=== PATIENT | male | born 1955 | race Caucasian/White ===

== ENCOUNTER 2018-09-07 09:21 | Day surgery (SDC) | payer OTHER ==
[2018-09-07] VITALS (29 sets, daily range): BP systolic 115–160; BP diastolic 75–105
[~2018-09-07] VITALS: Ht 190.5 cm; Wt 112.4 kg
[2018-09-07] MEDS ORDERED: HYDR-4353 PO (09:48)
[2018-09-07] MEDS ORDERED: CARSR60C PO (09:48)
[2018-09-07] MEDS ORDERED: UBID200C18 PO (09:48)
[2018-09-07] MEDS ORDERED: ATOR80TA PO (09:48)
[2018-09-07] MEDS ORDERED: ALBU0.63 NEB (09:48)
[2018-09-07] MEDS ORDERED: RIVA20TA PO (09:48)
[2018-09-07] MEDS ORDERED: OMEP20TA23 PO (09:48)
[2018-09-07] MEDS ORDERED: CLOP75TA15 PO (09:48)
[2018-09-07] MEDS ORDERED: PRED10TA23 PO (09:48)
[2018-09-07] MEDS ORDERED: normal saline 1000ml 1,000 ML IV SCH (09:55)
[2018-09-07] MEDS ORDERED: fentaNYL/PF 50MCG/1 ML 2ML syringe IV ONE (09:55)
[2018-09-07] MEDS ORDERED: MIDAZolam 5mg/ml 2ml vial IV ONE (09:55)
[2018-09-07 10:30] LABS: BASOPHILS % (AUTO) 0.3 % (0-1); EOSINOPHILS # (AUTO) 0.1 X10'3 (0-0.9); HEMATOCRIT 43.8 % (42.0-52.0); HEMOGLOBIN 14.2 g/dl (14.0-17.9); LYMPHOCYTES # (AUTO) 2.3 X10'3 (1.1-4.8); LYMPHOCYTES % (AUTO) 20.1 % (21-51); MEAN CORPUSCULAR HEMOGLOBIN 32.3 PG (27.0-31.0); MEAN CORPUSCULAR HGB CONC 32.5 % (33.0-36.5); MEAN CORPUSCULAR VOLUME 99.3 FL (78-98); MEAN PLATELET VOLUME 7.1 FL (7.4-10.4); MONOCYTES # (AUTO) 0.8 X10'3 (0-0.9); MONOCYTES % (AUTO) 7.4 % (2-12); NEUTROPHILS # (AUTO) 8.1 X10'3 (1.8-7.7); NEUTROPHILS % (AUTO) 71.2 % (42-75); PLATELET COUNT 182 X10'3 (140-440); RED BLOOD COUNT 4.41 X10'6 (4.70-6.10); RED CELL DISTRIBUTION WIDTH 14.9 % (11.5-14.5); WHITE BLOOD COUNT 11.4 X10'3 (4.5-11.0)
[2018-09-07 10:34] LABS: ALBUMIN 2.8 G/DL (3.4-5.0); ANION GAP 6 (8-16); BLOOD UREA NITROGEN 16 MG/DL (7-18); CALCIUM 8.2 MG/DL (8.5-10.1); CHLORIDE 105 MMOL/L (99-107); CREATININE 0.94 MG/DL (0.60-1.10); GLUCOSE 86 MG/DL (70-104); MAGNESIUM 1.9 MG/DL (1.5-2.4); POTASSIUM 3.1 MMOL/L (3.5-5.1); SODIUM 144 MMOL/L (135-145); TOTAL CARBON DIOXIDE 33.3 MMOL/L (24-32); eGFR 81 ML/MIN
[2018-09-07 10:39] LABS: INR 1.1 INR; PROTHROMBIN TIME 11.3 SECONDS (9.0-12.0)
[2018-09-07] MEDS ORDERED: amiodarone 150mg/dext, iso-os 100 ML IV ONE ×2 (11:45)
[2018-09-07] MEDS: metoprolol tartrate 1mg/ml inj IV SCH ×2 (12:42→12:52)
== END 2018-09-07 14:30 | disposition home or self-care (01) ==
LOC: SSTAY O 09:21
PROVIDERS: ATTEND Internal Medicine Cardiovascular Disease
DX: I48.1 Persistent atrial fibrillation (principal); I25.10 Atherosclerotic heart disease of native coronary artery without angina pectoris; I25.2 Old myocardial infarction; E78.5 Hyperlipidemia, unspecified; K21.9 Gastro-esophageal reflux disease without esophagitis; M19.90 Unspecified osteoarthritis, unspecified site; I10 Essential (primary) hypertension; J43.9 Emphysema, unspecified; F10.10 Alcohol abuse, uncomplicated; B18.2 Chronic viral hepatitis C; Z95.5 Presence of coronary angioplasty implant and graft; Z87.09 Personal history of other diseases of the respiratory system; Z86.74 Personal history of sudden cardiac arrest; Z87.891 Personal history of nicotine dependence; Z79.891 Long term (current) use of opiate analgesic; Z79.01 Long term (current) use of anticoagulants; Z79.899 Other long term (current) drug therapy; Z98.890 Other specified postprocedural states; Z88.8 Allergy status to other drugs, medicaments and biological substances; Z82.49 Family history of ischemic heart disease and other diseases of the circulatory system
CPT/HCPCS: 36415; 80048; 83735; 85025; 85610; 92960; 93005; J0282; J2250; J3010; J7030; J3490

== ENCOUNTER 2018-09-18 06:57 | Day surgery (SDC) | payer OTHER ==
[2018-09-18] VITALS (16 sets, daily range): BP systolic 102–137; BP diastolic 70–85
[~2018-09-18] VITALS: Ht 190.5 cm; Wt 107.1 kg
[~2018-09-18 06:57] MED LIST: ALBU0.63 NEB; ATOR80TA PO; CARSR60C PO; CLOP75TA15 PO; HYDR-4353 PO; OMEP20TA23 PO; PRED10TA23 PO; RIVA20TA PO; UBID200C18 PO
[2018-09-18] MEDS ORDERED: fentaNYL/PF 50MCG/1 ML 2ML syringe IV ONE (07:20)
[2018-09-18] MEDS ORDERED: normal saline 1000ml 1,000 ML IV SCH (07:20)
[2018-09-18] MEDS ORDERED: MIDAZolam 5mg/ml 2ml vial IV ONE (07:20)
[2018-09-18] MEDS ORDERED: LISI-600 PO (07:46)
[2018-09-18] MEDS ORDERED: FURO-150 PO (07:46)
[2018-09-18] MEDS ORDERED: AMIO200T40 PO (07:46)
[2018-09-18 08:04] LABS: BASOPHILS # (AUTO) 0.2 X10'3 (0-0.2); EOSINOPHILS # (AUTO) 0.1 X10'3 (0-0.9); EOSINOPHILS % (AUTO) 0.7 % (0-6); HEMATOCRIT 50.7 % (42.0-52.0); HEMOGLOBIN 16.8 g/dl (14.0-17.9); LYMPHOCYTES # (AUTO) 2.3 X10'3 (1.1-4.8); LYMPHOCYTES % (AUTO) 13.4 % (21-51); MEAN CORPUSCULAR HEMOGLOBIN 32.5 PG (27.0-31.0); MEAN CORPUSCULAR HGB CONC 33.1 % (33.0-36.5); MEAN CORPUSCULAR VOLUME 98.1 FL (78-98); MEAN PLATELET VOLUME 8.2 FL (7.4-10.4); MONOCYTES # (AUTO) 0.9 X10'3 (0-0.9); MONOCYTES % (AUTO) 5.3 % (2-12); NEUTROPHILS # (AUTO) 13.9 X10'3 (1.8-7.7); NEUTROPHILS % (AUTO) 79.6 % (42-75); PLATELET COUNT 169 X10'3 (140-440); RED BLOOD COUNT 5.17 X10'6 (4.70-6.10); RED CELL DISTRIBUTION WIDTH 14.4 % (11.5-14.5); WHITE BLOOD COUNT 17.5 X10'3 (4.5-11.0)
[2018-09-18 10:29] LABS: ALBUMIN 2.6 G/DL (3.4-5.0); ANION GAP 6 (8-16); BLOOD UREA NITROGEN 16 MG/DL (7-18); BUN/CREATININE RATIO 18.8 (5.4-32.0); CALCIUM 8.1 MG/DL (8.5-10.1); CHLORIDE 104 MMOL/L (99-107); CREATININE 0.85 MG/DL (0.60-1.10); GLUCOSE 83 MG/DL (70-104); MAGNESIUM 2.1 MG/DL (1.5-2.4); SODIUM 140 MMOL/L (135-145); TOTAL CARBON DIOXIDE 30.4 MMOL/L (24-32); eGFR > 90 ML/MIN
[2018-09-18 10:30] LABS: POTASSIUM 3.8 MMOL/L (3.5-5.1)
[2018-09-18 10:34] LABS: INR 2.4 INR; PROTHROMBIN TIME 23.7 SECONDS (9.0-12.0)
== END 2018-09-18 11:10 | disposition home or self-care (01) ==
LOC: SSTAY O 06:57
PROVIDERS: ATTEND Internal Medicine Cardiovascular Disease
DX: I48.1 Persistent atrial fibrillation (principal); I25.10 Atherosclerotic heart disease of native coronary artery without angina pectoris; I25.2 Old myocardial infarction; I25.5 Ischemic cardiomyopathy; I10 Essential (primary) hypertension; E78.5 Hyperlipidemia, unspecified; J44.9 Chronic obstructive pulmonary disease, unspecified; K21.9 Gastro-esophageal reflux disease without esophagitis; M19.90 Unspecified osteoarthritis, unspecified site; G89.29 Other chronic pain; F17.210 Nicotine dependence, cigarettes, uncomplicated; H91.8X3 Other specified hearing loss, bilateral; Z95.5 Presence of coronary angioplasty implant and graft; Z88.8 Allergy status to other drugs, medicaments and biological substances; Z79.891 Long term (current) use of opiate analgesic; Z86.74 Personal history of sudden cardiac arrest; Z87.09 Personal history of other diseases of the respiratory system; Z86.19 Personal history of other infectious and parasitic diseases; Z79.01 Long term (current) use of anticoagulants; Z79.899 Other long term (current) drug therapy; Z98.890 Other specified postprocedural states; Z82.49 Family history of ischemic heart disease and other diseases of the circulatory system
CPT/HCPCS: 36415; 80048; 83735; 85025; 85610; 92960; 93005; J2250; J3010; J7030

== ENCOUNTER 2019-12-27 12:21 | Day surgery (SDC) | payer MEDICARE ==
[~2019-12-27] VITALS: Ht 190.5 cm; Wt 110.4 kg
[~2019-12-27 12:21] MED LIST changes: +AMIO200T61 PO; +FURO-150 PO; +LISI-600 PO
[2019-12-27] MEDS ORDERED: normal saline 1,000 ML IV SCH (12:40)
[2019-12-27] MEDS ORDERED: FLUT1BLS4 (13:00)
[2019-12-27] MEDS ORDERED: LISI-604 (13:00)
[2019-12-27] MEDS ORDERED: OMEP-50 PO (13:00)
[2019-12-27] MEDS ORDERED: SOTA80TA73 (13:00)
[2019-12-27] MEDS ORDERED: SPIR25TA5 (13:00)
[2019-12-27] MEDS ORDERED: ALBU18HF2 (13:00)
[2019-12-27] MEDS ORDERED: HYDR-3972 (13:00)
[2019-12-27] MEDS ORDERED: ALIR150P (13:00)
[2019-12-27 13:25] LABS: BASOPHILS # (AUTO) 0.1 X10'3 (0-0.2); BASOPHILS % (AUTO) 1.1 % (0-1); EOSINOPHILS # (AUTO) 0.1 X10'3 (0-0.9); EOSINOPHILS % (AUTO) 1.9 % (0-6); HEMATOCRIT 49.1 % (42.0-52.0); HEMOGLOBIN 16.7 g/dl (14.0-17.9); LYMPHOCYTES # (AUTO) 2.2 X10'3 (1.1-4.8); LYMPHOCYTES % (AUTO) 27.4 % (21-51); MEAN CORPUSCULAR HEMOGLOBIN 31.7 PG (27.0-31.0); MEAN CORPUSCULAR VOLUME 93.1 FL (78-98); MEAN PLATELET VOLUME 6.8 FL (7.4-10.4); MONOCYTES # (AUTO) 0.6 X10'3 (0-0.9); MONOCYTES % (AUTO) 8.2 % (2-12); NEUTROPHILS # (AUTO) 4.8 X10'3 (1.8-7.7); NEUTROPHILS % (AUTO) 61.4 % (42-75); PLATELET COUNT 216 X10'3 (140-440); RED BLOOD COUNT 5.27 X10'6 (4.70-6.10); RED CELL DISTRIBUTION WIDTH 13.7 % (11.5-14.5); WHITE BLOOD COUNT 7.9 X10'3 (4.5-11.0)
[2019-12-27 13:33] LABS: ALBUMIN 3.9 G/DL (3.4-5.0); ANION GAP 6 (8-16); BLOOD UREA NITROGEN 14 MG/DL (7-18); BUN/CREATININE RATIO 14.1 (5.4-32.0); CALCIUM 9.7 MG/DL (8.5-10.1); CHLORIDE 100 MMOL/L (99-107); CREATININE 0.99 MG/DL (0.60-1.10); GLUCOSE 90 MG/DL (70-104); POTASSIUM 4.5 MMOL/L (3.5-5.1); SODIUM 138 MMOL/L (135-145); TOTAL CARBON DIOXIDE 32.1 MMOL/L (24-32); eGFR 76 ML/MIN
[2019-12-27 14:12] VITALS: BP 105/50
[2019-12-27] MEDS ORDERED: midazolam 2 mg/2 ml injection ONE ×3 (14:28→15:41)
[2019-12-27] MEDS ORDERED: fentaNYL/PF 50MCG/1 ML 2ML syringe ONE ×2 (14:28→15:38)
[2019-12-27] MEDS ORDERED: LIDOcaine 1% W/epiNEPHrine 1:100,000 20ml vial ONE (14:29)
[2019-12-27] MEDS ORDERED: vancomycin 1,000mg inj ONE (14:29)
[2019-12-27] MEDS ORDERED: iohexol 350 MG/ML 50ML vial IV ONE (14:29)
[2019-12-27] MEDS ORDERED: ceFAZolin 1000mg inj ONE (14:29)
[2019-12-27 16:10] VITALS: BP 125/73
[2019-12-27 16:24] VITALS: BP 108/73
[2019-12-27 16:39] VITALS: BP 111/76
[2019-12-27 16:44] VITALS: BP 108/73
== END 2019-12-27 17:15 | disposition home or self-care (01) ==
LOC: SSTAY O 12:21
PROVIDERS: ATTEND Internal Medicine Cardiovascular Disease
DX: I42.0 Dilated cardiomyopathy (principal); I25.10 Atherosclerotic heart disease of native coronary artery without angina pectoris; I48.0 Paroxysmal atrial fibrillation; I50.9 Heart failure, unspecified; J44.9 Chronic obstructive pulmonary disease, unspecified; I25.5 Ischemic cardiomyopathy; I25.2 Old myocardial infarction; I10 Essential (primary) hypertension; K21.9 Gastro-esophageal reflux disease without esophagitis; G89.29 Other chronic pain; M54.5 Low back pain; Z98.890 Other specified postprocedural states; Z79.899 Other long term (current) drug therapy; Z88.8 Allergy status to other drugs, medicaments and biological substances
CPT/HCPCS: 33249; 36415; 71045; 80048; 83735; 85025; 85610; 93005; 99152; 99153; C1722; C1777; C1894; J0690; J2250; J3010; J3370; J7050; Q9967; A4565; A4620